=== PATIENT | male | born 1960 | race Caucasian/White ===

== ENCOUNTER → 2017-03-02 | Outpatient (CLI) | payer BC, MEDICARE ==
[~2017-03-02] MED LIST: COUMADIN 5MG5 MG/TAB PO; COUMADIN 77.5 MG/TAB PO; JANUVIA 100MG100 MG PO; NIASPAN1000 MG PO; PRINIVIL20 MG PO; PROTONIX 40MG T40 MG PO; ZOCOR 40MG40 MG PO; ZYLOPRIM 300MG300 MG PO
== END ==
LOC: COL.RAD 15:52
DX: M79.604 Pain in right leg (principal)

== ENCOUNTER → 2019-01-03 | Outpatient (REF) | LOC: ZLAB.WCH 08:51 | DX: Z01.89 Encounter for other specified special examinations (principal) ==

== ENCOUNTER → 2019-01-24 | Outpatient (REF) | LOC: ZLAB.WCH 08:25 | DX: Z01.89 Encounter for other specified special examinations (principal) ==

== ENCOUNTER → 2019-01-30 | Outpatient (REF) | LOC: ZLAB.WCH 20:05 | DX: Z01.89 Encounter for other specified special examinations (principal) ==

== ENCOUNTER → 2019-02-07 | Outpatient (REF) | LOC: ZLAB.WCH 18:31 | DX: Z01.89 Encounter for other specified special examinations (principal) ==

== ENCOUNTER → 2020-08-14 | Outpatient (CLI) | payer BC, MEDICARE | LOC: COL.RAD 09:20 | DX: D47.2 Monoclonal gammopathy (principal); Z95.9 Presence of cardiac and vascular implant and graft, unspecified; Z96.651 Presence of right artificial knee joint ==

== ENCOUNTER 2020-08-22 16:41 | Inpatient (IN) | payer MEDICARE, BC ==
[2020-08-22] MEDS ORDERED: GLUCOPHAGE500 MG/TAB PO (17:04)
[2020-08-22] MEDS ORDERED: COZAAR 25MG25 MG/TAB PO (17:07)
[2020-08-22 18:34] LABS: PROTHROMBIN TIME 34.4 SECONDS (9.7-12.8)
[2020-08-22 18:36] LABS: ALBUMIN 3.9 gm/dL (3.5-5.0); BILIRUBIN,TOTAL 0.2 mg/dL (0.0-1.0); CREATININE, serum 1.7 (0.66-1.25); POTASSIUM 3.6 mmol/L (3.4-5.0); TOTAL PROTEIN 7.7 gm/dL (6.4-8.2)
[2020-08-22 18:39] LABS: CALCIUM 13.6 mg/dL (8.4-10.2)
[2020-08-22 19:09] VITALS: BP 156/84; PULSE 120; TEMP 98.4
--- NOTE | 2020-08-22 19:30 | NUR ---
Patient assessed at this time. Alert and oriented x 4, and able to make needs known. Reports chills earlier, no fever. Port to right chest accessed, NS running at 150 ml/hr per order. Denies SOB and dyspnea. LS CTA. Respirations even and unlabored. Tachycardia-telemetry implemented, sinus tachycardia in 120s-130s. EKG completed. Denies palpitations and chest pain. Capillary refill less than 3 seconds. Non-tenting skin turgor. BSA x 4. Abdomen soft and non-tender. No edema. Boot to left ankle not removed. Patient is non-weight bearing on that side. Notified MICHELE Steel of HR. Patient voices no further questions, needs, or concerns at this time. Resting in bed with call light within reach.
[2020-08-22 21:30] VITALS: BP 110/64; PULSE 127; TEMP 98.6
--- NOTE | 2020-08-22 21:30 | NUR ---
NS bolus started per orders around 2100. Blood cultures x 2 obtained at this time. HR continues to be sinus tach in the 120s. Telemetry stated that HR had been 160 around 2100. At that time, COMBINE INSPECTOR reports patient had large amount of emesis. Denies having any questions, needs, or concerns at this time.
[2020-08-22 22:11] LABS: HEMOGLOBIN 11.6 g/dl (13.5-18.0); MEAN CELL VOLUME 96 fl (80.0-100.0); MEAN CORPUSCULAR HEMOGLOBIN 32 pg (27.0-31.0); MEAN CORPUSCULAR HGB CONC 34 g/dl (33.0-37.0); MEAN PLATELET VOLUME 10.3 fl (7.4-10.4); PLATELET COUNT 198 K/mm3 (130-400); RED BLOOD COUNT 3.59 M/mm3 (4.20-5.60)
[2020-08-22 22:15] LABS: HEMATOCRIT 34.4 % (42.0-52.0)
[2020-08-22 22:36] LABS: BAND 25 % (0-10); EOSINOPHIL 2 % (0-4); LYMPHOCYTE 7 % (20.0-51.0); NEUTROPHILS 65 % (42.0-75.2); PLATELET ESTIMATE NORMAL (NORMAL)
[2020-08-22 22:37] LABS: ANISOCYTOSIS 1+
[2020-08-22 23:18] VITALS: BP 104/54; PULSE 121; TEMP 100.6
--- NOTE | 2020-08-22 23:37 | NUR ---
Patient has fever of 100.6. Called and updated Milvia. New order for UA, RVP, Covid swab.
[2020-08-23 00:17] LABS: COLLECTION METHOD CLEAN CATCH
[2020-08-23 00:22] LABS: PH 6 (5-8); SQUAMOUS EPITHELIAL None Seen /hpf; URINE APPEARANCE Clear; URINE BACTERIA None Seen /hpf; URINE BILIRUBIN Negative (NEGATIVE); URINE BLOOD Negative (NEGATIVE); URINE COLOR Yellow; URINE GLUCOSE 1+ (NEGATIVE); URINE KETONE Negative (NEGATIVE); URINE LEUKOCYTE ESTERASE Negative (NEGATIVE); URINE NITRATE Negative (NEGATIVE); URINE PROTEIN(semi-quant) Negative (NEGATIVE); URINE UROBILINOGEN Negative (NEGATIVE)
--- NOTE | 2020-08-23 00:43 | NUR ---
Lactic back at 3.1. Called to Mil[facility]. To bolus an additional 2.2 L of NS to total 3.2 L per sepsis protocol. Started 2nd bolus at this time. UA results called to Milvia. Awaiting Covid and RVP at this time.
[2020-08-23 00:49] LABS: SALICYLATE < 1.0 mg/dL
[2020-08-23 00:59] LABS: TROPONIN-I 0.015 ng/mL (0.000-0.035)
[2020-08-23 03:04] VITALS: BP 102/66; PULSE 105; TEMP 98.9
--- NOTE | 2020-08-23 05:17 | NUR ---
Patient has been wake most of night. Did go to the bathroom three times, and had a large BM. Has been using urinal in bed as well. Patient's HR has been in the 110s since receiving fluid boluses per orders. Patient afebrile at this time, and did not receive any medication for fever earlier this shift. Fluids continue to run per orders. Continues on antibiotic per orders. Voices no questions, needs, or concerns at this time. Resting in bed with call light within reach. High fall risk precautions in place.
[2020-08-23 07:06] VITALS: BP 106/59; PULSE 80; TEMP 97.7
[2020-08-23 07:10] LABS: BASO # 0.1 (0.0-0.2); BASO % 0.5 % (0.0-2.0); EOS # 0.1 (0.0-0.7); EOS % 0.6 % (0-4.0); GRAN # 10.4 (1.4-6.5); GRAN % 84.4 % (42.2-75.2); HEMOGLOBIN 10.1 g/dl (13.5-18.0); LYMPH # 0.8 (1.2-3.4); LYMPH % 6.1 % (20.0-51.0); MEAN CELL VOLUME 98 fl (80.0-100.0); MEAN CORPUSCULAR HEMOGLOBIN 33 pg (27.0-31.0); MEAN CORPUSCULAR HGB CONC 33 g/dl (33.0-37.0); MEAN PLATELET VOLUME 11.2 fl (7.4-10.4); MONO % 7.9 % (1.7-9.3); PLATELET COUNT 209 K/mm3 (130-400); REDCELL DISTRIBUTION WIDTH-CV 13.2 % (11.5-14.5)
[2020-08-23 07:11] LABS: HEMATOCRIT 30.3 % (42.0-52.0)
--- NOTE | 2020-08-23 07:13 | NUR ---
Pt in bed, c/o discomfort and lack of sleep. Pt was febrile through the night. Will continue to assess through the shift. Assessment completed. No further concerns, call light and bed alarm on.
[2020-08-23 07:16] LABS: INR 3.4 (0.8-3.0); PROTHROMBIN TIME 38.1 SECONDS (9.7-12.8)
[2020-08-23 07:25] LABS: BILIRUBIN,TOTAL 0.3 mg/dL (0.0-1.0); CALCIUM 11.2 mg/dL (8.4-10.2); CREATININE, serum 1.6 (0.66-1.25); POTASSIUM 3.9 mmol/L (3.4-5.0); TOTAL PROTEIN 6.1 gm/dL (6.4-8.2)
--- NOTE | 2020-08-23 10:31 | NUR ---
Initial visit; Patient and his thanked Air Gun Operator for looking in on him and offering God's blessings and to keep him in her prayes.
[2020-08-23 11:49] VITALS: BP 101/59; PULSE 71; TEMP 98.4
[2020-08-23] MEDS ORDERED: SYNTHROID0.088 MG/T PO (14:57)
--- NOTE | 2020-08-23 15:54 | NUR ---
Stock Selector met with the patient to complete initial intake. The patient lives in [place] with his , daughter, and two grandchildren. The patient has a cane. He currently has knee walker and brace. Due to the brace he does receives assistance with bathes from his . The patient's PCP is Dr. Mena and patient receives medications from [facility] pharmacy. The patient does not have advanced directives and was not interested in DPOA-HC form. The patient plans to return home with no concerns about doing so. There are no additional needs at this time.
[2020-08-23 16:00] VITALS: BP 104/64; PULSE 71; TEMP 98.2
[2020-08-23 19:35] LABS: PTH,INTACT 37.2 pg/mL (6.6-88.9)
[2020-08-23 20:00] VITALS: BP 104/73; PULSE 94; TEMP 99.3
--- NOTE | 2020-08-23 20:20 | NUR ---
Patient assessed at this time. Alert and oriented x 4, and able to make needs known. Reported pain to right chest area, and given PRN APAP as requested for pain. Port to right chest patent. NS running at 150 ml/hr per orders. Site without redness, warmth, swelling, and pain. Dressing to area CDI. Denies SOB and dyspnea. LS CTA. Respirations even and unlabored. HRR. Telemetry in place: normal sinus. Capillary refill less than 3 seconds. Non-tenting skin turgor. BSAx4. Abdomen soft and non-tender. 1+ edema BLE. Patient has boot to left foot, non-weight bearing. Voices no questions, needs, or concerns at this time. Resting in bed with call light within reach.
[2020-08-24] VITALS (7 sets, daily range): BP systolic 104–122; BP diastolic 57–73; PULSE 62–74; TEMP 97.2–99.3
--- NOTE | 2020-08-24 05:45 | NUR ---
Patient has been resting in bed on and off during the night. Received APAP once during the night for right chest pain, and has had no further complaints at this time. Continues on Maxapime per orders. Voices no questions, needs, or concerns at this time. Resting in bed with call light within reach.
[2020-08-24 06:29] LABS: BASO % 0.5 % (0.0-2.0); EOS # 0.4 (0.0-0.7); EOS % 4.4 % (0-4.0); GRAN # 5.7 (1.4-6.5); GRAN % 72.1 % (42.2-75.2); HEMOGLOBIN 10.1 g/dl (13.5-18.0); LYMPH % 12.2 % (20.0-51.0); MEAN CELL VOLUME 97 fl (80.0-100.0); MEAN CORPUSCULAR HEMOGLOBIN 32 pg (27.0-31.0); MEAN CORPUSCULAR HGB CONC 33 g/dl (33.0-37.0); MEAN PLATELET VOLUME 11.2 fl (7.4-10.4); MONO # 0.8 (0.1-0.6); MONO % 10.2 % (1.7-9.3); PLATELET COUNT 158 K/mm3 (130-400); RED BLOOD COUNT 3.16 M/mm3 (4.20-5.60); REDCELL DISTRIBUTION WIDTH-CV 13.2 % (11.5-14.5)
[2020-08-24 06:36] LABS: INR 2.4 (0.8-3.0)
[2020-08-24 06:40] LABS: ALBUMIN 3.2 gm/dL (3.5-5.0); BILIRUBIN,TOTAL 0.4 mg/dL (0.0-1.0); CALCIUM 10.1 mg/dL (8.4-10.2); CREATININE, serum 1.36 (0.66-1.25); POTASSIUM 3.9 mmol/L (3.4-5.0); TOTAL PROTEIN 6.3 gm/dL (6.4-8.2)
[2020-08-24 06:42] LABS: HEMATOCRIT 30.6 % (42.0-52.0)
--- NOTE | 2020-08-24 15:13 | NUR ---
Patient is alert and oriented. complain of right upper abdominal/lateral right chest pain after coughing. patient was started on Benadryl for the cough and tylenol for pain. XRAY show borderline cardiomegaly, CT scan shows no acute intracranial findings. WBC 8, Patient remain afebrile, PT 27, inr 2.4.
--- NOTE | 2020-08-24 19:05 | NUR ---
Patient PAC leaking, evident by ivf on gown and bed. NS was stopped. Milvia HEAD OPERATOR ordered xray and port deassess. started 20G peripheral line on patient Left hand. PAC deaccessed. Patient denies Shortness of air or severe pain. fluid restarted on Left forearm IV site.
--- NOTE | 2020-08-24 20:30 | NUR ---
Patient assessed at this time. Alert and oriented x 4, and able to make needs known. Denies having pain and discomfort at this time. Peripheral IV to left forearm with NS runnig at 150 ml/hr per orders. Site is without redness, warmth, swelling, and pain. Port to right chest deaccessed on previous shift. Site is without redness and warmth, but is tender to touch. Denies SOB and dyspnea. LS CTA. Respirations even and unlabored. Occasional dry cough. HRR. Telemetry: sinus. Capillary refill less than 3 seconds. Non-tenting skin turgor. BSAx4. Abdomen soft and non-tender. 1+ edema BLE. Boot to left foot. Has been using bedside urinal. Voices no questions, needs, or concerns at this time. Resting in bed with call light within reach.
--- NOTE | 2020-08-25 02:10 | NUR ---
Patient given PRN Benadryl and APAP as requested for dizziness and tenderness to right chest at this time.
[2020-08-25 04:00] VITALS: BP 120/67; PULSE 57; TEMP 97.6
--- NOTE | 2020-08-25 05:57 | NUR ---
Patient asssisted to recliner around 0430. Stated at that time he felt like he would start to fall asleep and then wake up startled and uncomfortable. VSS. No change on telemetry. Voices no questions, needs or concerns at this time. IV fluids continue per orders. Continues on Maxapime. Resting in recliner with call light within reach.
[2020-08-25 07:10] LABS: BASO % 0.6 % (0.0-2.0); EOS # 0.3 (0.0-0.7); EOS % 4.9 % (0-4.0); GRAN # 4.4 (1.4-6.5); GRAN % 65.3 % (42.2-75.2); LYMPH # 1.1 (1.2-3.4); LYMPH % 16.5 % (20.0-51.0); MEAN CELL VOLUME 96 fl (80.0-100.0); MEAN CORPUSCULAR HGB CONC 33 g/dl (33.0-37.0); MEAN PLATELET VOLUME 11.9 fl (7.4-10.4); MONO # 0.8 (0.1-0.6); MONO % 12.3 % (1.7-9.3); PLATELET COUNT 180 K/mm3 (130-400); RED BLOOD COUNT 3.12 M/mm3 (4.20-5.60); REDCELL DISTRIBUTION WIDTH-CV 13.2 % (11.5-14.5)
[2020-08-25 07:18] LABS: HEMATOCRIT 29.9 % (42.0-52.0); HEMOGLOBIN 9.9 g/dl (13.5-18.0); MEAN CORPUSCULAR HEMOGLOBIN 32 pg (27.0-31.0)
[2020-08-25 07:19] LABS: ALBUMIN 3.4 gm/dL (3.5-5.0); BILIRUBIN,TOTAL 0.5 mg/dL (0.0-1.0); CALCIUM 9.8 mg/dL (8.4-10.2); CREATININE, serum 1.28 (0.66-1.25); POTASSIUM 3.9 mmol/L (3.4-5.0); TOTAL PROTEIN 6.8 gm/dL (6.4-8.2)
[2020-08-25 08:05] VITALS: BP 114/63; PULSE 51; TEMP 98.1
--- NOTE | 2020-08-25 09:18 | NUR ---
MORNING MEDS GIVEN. PT WAS ASLEEP BUT EASILY AROUSABLE. AOX4. REPORTED SOME DIZINESS WHEN ATTEMPTED TO SIT UP DURING ASSESSMENT. DENIES NAUSEA. TOLERATING PO AND ATE 85% BREAKFAST. URINE CLEAR YELLOW. CAM BOOT TO LEFT ANKLE. PT REPORTS HE TAKES BOOT OFF @ 0945 EVERY MORNING AND RUBS ANCIISON DIRECTED BY SURGEON THEN PUTS BACK @1015 AND REPEATS LATER IN AFTERNOON. INCISION ASSESSED AND AREA C/D/I. DRY STERI STRIPS NOTED TO APPROX INCISION. RT LEG THIGH-LONG NICHOLAS HOSE. NO EDEMA NOTED TO EXTREMITIES. LCTA. PT REPORTS OCCASIONAL COUGH WITH GREEN PHLEGM. PORT-A-CATH SITE TO RT UPPER CHEST SLIGHTLY PUFFY ABOVE PORT BUT NO SURROUNDING EDEMA NOTED. LT AC IV INTACT WITH NS INFUSING. WILL CONT TO MONITOR.
[2020-08-25 11:25] VITALS: BP 120/64; PULSE 56; TEMP 98
[2020-08-25] MEDS ORDERED: ANTIVERT 12.512.5 MG PO (11:26)
--- NOTE | 2020-08-25 12:27 | NUR ---
SW reviewed notes as indicated in previous SW notes. OT indicated patient will be returing home with family assist. SW informed patients nurse as patient was due to be released today.
--- NOTE | 2020-08-25 15:20 | NUR ---
pt wheeled out @ 1500 and picked up by daughter and son-in law. discharge paperwork reviewed earlier but pt was waiting for family to get off work. left with all personal belongings including scooter. states already has appt with PCP WednesdayAug. PT will F/U with [facility] appt as he is not sure of a date. all paperwork given.
--- NOTE | 2020-08-26 07:24 | NUR ---
Patient notified of positive blood culture results. Patient reports he is still having cough and chills. Voices understanding that he will call 's office as soon as office is open and will follow up with primary care provider or return to hospital if he does not improve.
== END 2020-08-25 15:00 | disposition home or self-care (01) | DRG 683 ==
LOC: MEDICAL 16:41
PROVIDERS: Nurse Practitioner Family; Physician Assistant; ADMIT Hospitalist
DX: N17.9 Acute kidney failure, unspecified (principal); R65.10 Systemic inflammatory response syndrome (SIRS) of non-infectious origin without acute organ dysfunction; E83.52 Hypercalcemia; Z85.47 Personal history of malignant neoplasm of testis; E11.9 Type 2 diabetes mellitus without complications; Z86.718 Personal history of other venous thrombosis and embolism; Z87.442 Personal history of urinary calculi; R42 Dizziness and giddiness; E86.0 Dehydration
CPT/HCPCS: 99223-AI; 99232-AI; 99233-AI; J0692; J3489; J7030

== ENCOUNTER 2020-12-05 19:35 | Emergency (ER) | payer MEDICARE, BC ==
[~2020-12-05] VITALS: Ht 175.3 cm; Wt 102.7 kg
[~2020-12-05 19:35] MED LIST changes: +ANTIVERT 12.512.5 MG PO; +COZAAR 25MG25 MG/TAB PO; +GLUCOPHAGE500 MG/TAB PO; +SYNTHROID0.088 MG/T PO
[2020-12-05 19:45] VITALS: TEMP 98.5
[2020-12-05 20:16] LABS: MEAN CELL VOLUME 98 fl (80.0-100.0); MEAN CORPUSCULAR HEMOGLOBIN 32 pg (27.0-31.0); MEAN CORPUSCULAR HGB CONC 33 g/dl (33.0-37.0); MEAN PLATELET VOLUME 12.1 fl (7.4-10.4); PLATELET COUNT 215 K/mm3 (130-400); RED BLOOD COUNT 3.74 M/mm3 (4.20-5.60); REDCELL DISTRIBUTION WIDTH-CV 15.2 % (11.5-14.5)
[2020-12-05 20:30] LABS: HEMATOCRIT 36.7 % (42.0-52.0)
[2020-12-05 20:34] LABS: TROPONIN-I 0.015 ng/mL (0.000-0.035)
[2020-12-05] MEDS ORDERED: COUMADIN 77.5 MG/TAB PO (20:50)
[2020-12-05] MEDS ORDERED: COUMADIN 5MG5 MG/TAB PO (20:50)
[2020-12-05 20:56] LABS: BAND 9 % (0-10); EOSINOPHIL 5 % (0-4); LYMPHOCYTE 12 % (20.0-51.0); METAMYELOCYTE 1 % (0-0); NEUTROPHILS 68 % (42.0-75.2); PLATELET ESTIMATE NORMAL (NORMAL)
[2020-12-05 21:26] LABS: COLLECTION METHOD CLEAN CATCH
[2020-12-05 21:32] LABS: MUCOUS Present /lpf; PH 5 (5-8); SQUAMOUS EPITHELIAL None Seen /hpf; URINE APPEARANCE Clear; URINE BACTERIA None Seen /hpf; URINE BILIRUBIN Negative (NEGATIVE); URINE BLOOD Negative (NEGATIVE); URINE COLOR Yellow; URINE GLUCOSE 1+ (NEGATIVE); URINE KETONE Negative (NEGATIVE); URINE LEUKOCYTE ESTERASE Negative (NEGATIVE); URINE NITRATE Negative (NEGATIVE); URINE PROTEIN(semi-quant) Negative (NEGATIVE); URINE RBC 0-2 /hpf; URINE UROBILINOGEN Negative (NEGATIVE); URINE WBC 0-2 /hpf
[2020-12-05 22:35] VITALS: BP 111/62; PULSE 99
== END 2020-12-05 22:35 | disposition home or self-care (01) ==
LOC: COL.ER 19:35
PROVIDERS: Emergency Medicine
DX: E86.0 Dehydration (principal); R42 Dizziness and giddiness; I95.9 Hypotension, unspecified; R00.0 Tachycardia, unspecified; E11.9 Type 2 diabetes mellitus without complications; C90.01 Multiple myeloma in remission; I10 Essential (primary) hypertension; Z85.47 Personal history of malignant neoplasm of testis; Z87.891 Personal history of nicotine dependence; Z79.01 Long term (current) use of anticoagulants; Z79.84 Long term (current) use of oral hypoglycemic drugs
CPT/HCPCS: J0692; J7030

== ENCOUNTER 2021-01-27 11:50 | Outpatient (CLI) | payer MEDICARE, BC ==
[~2021-01-27] VITALS: Ht 175.3 cm; Wt 102.0 kg
[2021-01-27] MEDS ORDERED: AMARYL 2MG T2 MG/TAB PO (12:27)
[2021-01-27] MEDS ORDERED: DECADRON 4MG TAB4 MG PO (12:29)
[2021-01-27] MEDS ORDERED: VELCADE3.5 MG (12:30)
[2021-01-27] MEDS ORDERED: REVLIMID25 MG PO (12:31)
[2021-01-27 12:38] VITALS: BP 106/69; PULSE 95; TEMP 97.6
--- NOTE | 2021-01-27 14:16 | NUR ---
NS INFUSED, PORT FLUSHED PER PROTOCOL. B/P 111/68, PT DISCHARGED VIA W/C TO LOBBY WITH FAMILY
== END 2021-01-27 14:28 | disposition home or self-care (01) ==
LOC: EUO 11:50
DX: C90.00 Multiple myeloma not having achieved remission (principal)

== ENCOUNTER 2021-09-23 06:58 | Day surgery (SDC) | payer MEDICARE, BC ==
[~2021-09-23] VITALS: Ht 175.3 cm; Wt 104.9 kg
[~2021-09-23 06:58] MED LIST changes: +AMARYL 2MG T2 MG/TAB PO; +DECADRON 4MG TAB4 MG PO; +REVLIMID25 MG PO; +VELCADE3.5 MG
[2021-09-23] MEDS ORDERED: NORCO 325 MG-51 TAB PO (07:42)
[2021-09-23] MEDS ORDERED: MASON NATURAL2000 IU PO (07:43)
[2021-09-23] MEDS ORDERED: ONE-A-DAY ESSE1 EACH PO (07:43)
[2021-09-23] MEDS ORDERED: NEURONTIN300 MG/CAP PO (07:44)
[2021-09-23] MEDS ORDERED: COUMADIN 77.5 MG/TAB PO (07:45)
[2021-09-23 08:12] LABS: BASO # 0.1 K/mm3 (0.0-0.2); EOS # 0.3 K/mm3 (0.0-0.7); EOS % 5.4 % (0-4.0); GRAN # 3.3 K/mm3 (1.4-6.5); GRAN % 57.3 % (42.2-75.2); HEMOGLOBIN 11.9 g/dl (13.5-18.0); LYMPH # 1.3 K/mm3 (1.2-3.4); LYMPH % 23.3 % (20.0-51.0); MEAN CELL VOLUME 93 fl (80.0-100.0); MEAN CORPUSCULAR HEMOGLOBIN 31 pg (27.0-31.0); MEAN CORPUSCULAR HGB CONC 33 g/dl (33.0-37.0); MEAN PLATELET VOLUME 9.8 fl (7.4-10.4); MONO # 0.7 K/mm3 (0.1-0.6); MONO % 12.3 % (1.7-9.3); PLATELET COUNT 224 K/mm3 (130-400); RED BLOOD COUNT 3.88 M/mm3 (4.20-5.60)
[2021-09-23 08:13] VITALS: BP 115/72; PULSE 71; TEMP 97.7
[2021-09-23 08:13] LABS: HEMATOCRIT 36.1 % (42.0-52.0)
--- NOTE | 2021-09-23 08:13 | NUR ---
TWIN Cabrera access patient's dual chamber port-a-cath in his right chest. Flushed well and aspirated blood. Blood drawn for labs and connected to IV fluids.
[2021-09-23] MEDS ORDERED: COUMADIN 5MG5 MG/TAB PO (08:18)
[2021-09-23 09:35] VITALS: BP 110/65; PULSE 73; TEMP 98.8
--- NOTE | 2021-09-23 09:35 | NUR ---
Patient arrived back into bay 7 from PACU. Report recieved from STRAIGHT KNIFE MACHINE CUTTER, Karissa. Dressing is clean, dry, and intact. at bedside. Patient denies pain at this time. Requesting orange juice and muffins.
[2021-09-23 09:50] VITALS: BP 106/73; PULSE 70
--- NOTE | 2021-09-23 09:50 | NUR ---
Patient tolerated muffin and OJ well with no complaints of nausea or vomiting.
[2021-09-23 10:05] VITALS: BP 110/68; PULSE 71
--- NOTE | 2021-09-23 10:05 | NUR ---
Went through patient discharge instructions with patient and patient's . Verbalized understanding to education.
--- NOTE | 2021-09-23 10:10 | NUR ---
Patient's called friend for a ride. Patient states that ride will be here in 25-30 minutes. Patient got dressed and used restroom.
--- NOTE | 2021-09-23 10:55 | NUR ---
Patient and escorted to emergency deparment entrance. Patient's friend arrived to drive them home. Patient left in the care of his , Devanie and friend.
== END 2021-09-23 10:55 | disposition home or self-care (01) ==
LOC: SDCO 06:58
PROVIDERS: Pathology Anatomic Pathology & Clinical Pathology
DX: C90.00 Multiple myeloma not having achieved remission (principal); E83.52 Hypercalcemia; E11.9 Type 2 diabetes mellitus without complications; I82.401 Acute embolism and thrombosis of unspecified deep veins of right lower extremity; Z79.899 Other long term (current) drug therapy; Z79.84 Long term (current) use of oral hypoglycemic drugs; Z87.891 Personal history of nicotine dependence; Z80.8 Family history of malignant neoplasm of other organs or systems; Z80.3 Family history of malignant neoplasm of breast
CPT/HCPCS: J1644; J2704; J3010; J7030

== ENCOUNTER → 2021-11-26 | Outpatient (CLI) | payer MEDICARE, BC ==
[~2021-11-26] MED LIST changes: +MASON NATURAL2000 IU PO; +NEURONTIN300 MG/CAP PO; +NORCO 325 MG-51 TAB PO; +ONE-A-DAY ESSE1 EACH PO
== END ==
LOC: COL.RAD 11:17
DX: M19.072 Primary osteoarthritis, left ankle and foot (principal); M77.32 Calcaneal spur, left foot; Z98.1 Arthrodesis status

== ENCOUNTER 2022-06-05 05:23 | Day surgery (SDC) | payer MEDICARE ==
[~2022-06-05] VITALS: Ht 175.3 cm; Wt 107.9 kg
[~2022-06-05 05:23] MED LIST changes: +TRICOR 48MG48 MG PO
[2022-06-05] MEDS ORDERED: TYLENOL 8 HR PO (06:09)
[2022-06-05] MEDS ORDERED: GLUCOSAMINE & C1 CA2 PO (06:09)
[2022-06-05 06:11] VITALS: BP 122/75; PULSE 76; TEMP 97.3
--- NOTE | 2022-06-05 06:27 | NUR ---
DR. ROSAS IN THE ROOM AND TALKS WITH THE PATIENT.
[2022-06-05 07:10] VITALS: BP 120/66; PULSE 74
--- NOTE | 2022-06-05 07:10 | NUR ---
PATIENT RETURNS TO ROOM 8 PER CART FROM PACU IS AROUSES TO VERBAL STIMULI AND . ICE BAG ON THE LEFT SHOULDER. BANDAID IN PLACE. IV FLUIDS INFUISING. SIDERAILS UP X2 AND CALL LIGHT IN REACH. ALLOWED TO REST.
[2022-06-05 07:25] VITALS: BP 131/72; PULSE 60
--- NOTE | 2022-06-05 07:25 | NUR ---
MORE AWAKE AND TAKING ORANGE JUICE. DENIES PAIN OR NAUSEA.
[2022-06-05 07:40] VITALS: BP 125/69; PULSE 58
--- NOTE | 2022-06-05 07:40 | NUR ---
IV TO INT. ROOM AIR SATS 94%. ICE BAG ON THE LEFT SHOULDER.
[2022-06-05 07:55] VITALS: BP 115/69; PULSE 59
--- NOTE | 2022-06-05 07:55 | NUR ---
IV DISCONTINUED AND SITE IS FREE OF REDNESS. ICE BAG MAINATAINED LEFT SHOULDER. BANDAID ON THE LEFT SHOULDER. CONTINUES TO DENY PAIN OR NAUSEA.
--- NOTE | 2022-06-05 08:13 | NUR ---
DISMISSAL INSTRUCTIONS GIVEN AND VOICES UNDERSTANDIING OF THESE. PROVIDED SCRIPT TO TAKE TO PHYSICAL THERAPY APPOINTMENT AND FOLLOW UP APPOINTMENT CARD FOR OFFICE.
--- NOTE | 2022-06-05 08:17 | NUR ---
DISMISSAL INSTRUCTIONS GIVEN AND PATIENT VOICES UNDERSTANDING OF THESE AND SIGNED. ASSISTED INTO WHEELCHAIR AND TAKEN TO THE FRONT DOOR AND ASSISTED INTO PRIVATE VEHICLE DRIVEN BY BROTHER.
== END 2022-06-05 08:17 | disposition home or self-care (01) ==
LOC: SDCO 05:23
DX: M75.02 Adhesive capsulitis of left shoulder (principal); Z87.891 Personal history of nicotine dependence
CPT/HCPCS: J1885; J2405; J2704; J3010; J3301

== ENCOUNTER 2023-10-06 12:48 | Emergency (ER) | payer MEDICARE ==
[~2023-10-06] VITALS: Ht 177.8 cm; Wt 98.6 kg
[~2023-10-06 12:48] MED LIST changes: -AMARYL 2MG T2 MG/TAB PO; +AMARYL4 MG PO; +FISH OIL 1000MG1 CAP PO; +FLAGYL500 MG PO; +GLUCOSAMINE & C1 CA2 PO; +JANUVIA50 MG PO; -MASON NATURAL2000 IU PO; +MULTI VITAMINS1 TAB PO; +OMNICEF 300MG300 MG PO; +ROXICODONE 55 MG/TAB PO; +TYLENOL 8 HR PO; +VITAMIND3 5000 PO
[2023-10-06 13:09] VITALS: TEMP 98.1
[2023-10-06 14:58] LABS: BASO # 0.1 K/mm3 (0.0-0.2); BASO % 0.5 % (0.0-2.0); EOS # 0.2 K/mm3 (0.0-0.7); GRAN # 9.3 K/mm3 (1.4-6.5); GRAN % 86.5 % (42.2-75.2); HEMATOCRIT 45.1 % (42.0-52.0); LYMPH # 0.4 K/mm3 (1.2-3.4); LYMPH % 3.8 % (20.0-51.0); MEAN CELL VOLUME 95 fl (80.0-100.0); MEAN CORPUSCULAR HEMOGLOBIN 31 pg (27-31); MEAN CORPUSCULAR HGB CONC 33 g/dl (33.0-37.0); MEAN PLATELET VOLUME 9.8 fl (7.4-10.4); MONO # 0.7 K/mm3 (0.1-0.6); MONO % 6.7 % (1.7-9.3); PLATELET COUNT 239 K/mm3 (130-400); RED BLOOD COUNT 4.77 M/mm3 (4.20-5.60); REDCELL DISTRIBUTION WIDTH-CV 14.3 % (11.5-14.5)
[2023-10-06 15:23] LABS: ALBUMIN 4.1 gm/dL (3.4-4.8); BILIRUBIN,TOTAL 0.7 mg/dL (0.2-1.2); CALCIUM 12.3 mg/dL (8.4-10.2); CREATININE, serum 2.16 mg/dL (0.72-1.25); POTASSIUM 4.8 mmol/L (3.5-4.5); TOTAL PROTEIN 8.6 gm/dL (6.2-8.1)
[2023-10-06 16:55] LABS: CALCIUM 11.4 mg/dL (8.4-10.2); CREATININE, serum 1.97 mg/dL (0.72-1.25)
[2023-10-06] MEDS ORDERED: ZOFRAN ODT4 MG PO (17:21)
[2023-10-06 17:44] VITALS: BP 100/61; PULSE 95
== END 2023-10-06 17:46 | disposition home or self-care (01) ==
LOC: COL.ER 12:48
PROVIDERS: Emergency Medicine
DX: R11.2 Nausea with vomiting, unspecified (principal); R19.7 Diarrhea, unspecified; R00.0 Tachycardia, unspecified; N17.9 Acute kidney failure, unspecified; Z85.528 Personal history of other malignant neoplasm of kidney
CPT/HCPCS: J2405; J7120

== ENCOUNTER 2023-12-06 11:20 | Emergency (ER) | payer OTHER ==
[~2023-12-06] VITALS: Ht 177.8 cm; Wt 102.3 kg
[~2023-12-06 11:20] MED LIST changes: +ZOFRAN ODT4 MG PO
[2023-12-06 11:21] VITALS: TEMP 98.2
[2023-12-06] MEDS ORDERED: Acetaminophen 500 MG TAB PO ONE (13:15)
[2023-12-06 13:28] VITALS: BP 117/76; PULSE 72
== END 2023-12-06 13:28 | disposition home or self-care (01) ==
LOC: COL.ER 11:20
DX: S13.4XXA Sprain of ligaments of cervical spine, initial encounter (principal); V89.2XXA Person injured in unspecified motor-vehicle accident, traffic, initial encounter; Y92.410 Unspecified street and highway as the place of occurrence of the external cause

== ENCOUNTER → 2024-01-25 | Outpatient (CLI) | payer MEDICARE ==
[~2024-01-25] VITALS: Ht 177.8 cm; Wt 101.0 kg
[~2024-01-25] MED LIST changes: +CLEOCIN HCL300 MG PO; +NEPHRON FA TAB1 EACH PO; +VICODIN 5/300 PO
[2024-01-25 12:16] VITALS: BP 115/76; PULSE 71; TEMP 97.4
[2024-01-25 13:15] VITALS: BP 122/76; PULSE 89
== END ==
LOC: COL.RAD 11:49
DX: R59.1 Generalized enlarged lymph nodes (principal); C90.00 Multiple myeloma not having achieved remission